=== PATIENT | male | born 1965 | race Caucasian/White ===

== ENCOUNTER 2018-09-09 07:19 | Emergency (ER) | payer OTHER ==
[2018-09-09] MEDS ORDERED: Oxymetazoline 0.05% NASAL SPR* 15 ML BTL BOTH NARES ONE (09:31)
[2018-09-09] MEDS ORDERED: Silver Nitrate/Potassium Nitr* 1 EA STICK TOPICAL ONE (09:54)
[2018-09-09 10:52] VITALS: BP 131/69
--- NOTE | 2018-09-09 11:05 | ED ---
Throat Pain/Nasal Congestion - HPI Summary HPI Summary: Patient is a 52-year-old male who presents emergency department for nosebleed that started around 7 AM. Patient states he wears a CPAP at night and today at work he blew his nose and no started bleeding profusely. Patient states that blood was pouring out of his right nostril and going down his throat. A coworker put a tampon in his nostril which improved bleeding and he presents for evaluation. Patient is not anticoagulated. He otherwise denies chest pain , shortness breath, lightheadedness, dizziness. Patient states he's had occasional bleeds in the past but never to this extent. He notes he does use a humidifier in bedroom at home and applies Vaseline to nose at night. Symptoms are mild in severity. No current modifying factors. - History of Current Complaint Chief Complaint: EDEpistaxis Time Seen by Provider: 09/09/18 08:33 Hx Obtained From: Patient - Allergies/Home Medications Allergies/Adverse Reactions: Allergies Allergy/AdvReac Type Severity Reaction Status Date / Time Pertussis Vaccines Allergy Fever Verified 09/09/18 07:26 tetanus and diphtheria Allergy Fever Verified 09/09/18 07:26 toxoids PMH/Surg Hx/FS Hx/Imm Hx Previously Healthy: Yes Infectious Disease History: No Infectious Disease History: Denies: Traveled Outside the [place] in Last 30 Days - Family History Known Family History: Positive: Non-Contributory - Social History Occupation: Employed Full-time Lives: With Family Alcohol Use: Rare Substance Use Type: Reports: None Smoking Status (MU): Never Smoked Tobacco Review of Systems Positive: Epistaxis Cardiovascular: Negative Respiratory: Negative All Other Systems Reviewed And Are Negative: Yes Physical Exam Triage Information Reviewed: Yes Vital Signs On Initial Exam: Initial Vitals Temp Pulse Resp BP Pulse Ox 97.3 F 88 20 129/88 97 09/09/18 07:22 09/09/18 07:22 09/09/18 07:22 09/09/18 07:22 09/09/18 07:22 Vital Signs Reviewed: Yes Appearance: Positive: Well-Appearing - Pt. sitting up in bed in NAD. Tampon noted anteriorly in right nare that is partially saturated in blood. NO active bleeding. Skin: Positive: Warm, Dry Head/Face: Positive: Normal Head/Face Inspection Eyes: Positive: Normal, EOMI ENT: Positive: Other - Tampon noted anteriorly in right nare that is partially saturated in blood. No bleeding from left. No blood in posterior pharynx. Tampon removed from left nare. No active bleeding. Area noted to the right kiesselbach plexus. Neck: Positive: Supple Neurological: Positive: Normal, CN Intact II-III Psychiatric: Positive: Affect/Mood Appropriate Procedures - Procedure Summary Procedure Summary: Afrin applied to right nare. Silver nitrate stick used to cauterize small area no right kiesselbach region. Pt. tolerated well. No further bleeding. Diagnostics - Vital Signs Vital Signs Temp Pulse Resp BP Pulse Ox 09/09/18 10:51 98.7 F 82 18 131/69 94 09/09/18 07:22 97.3 F 88 20 129/88 97 - Laboratory Lab Statement: Any lab studies that have been ordered have been reviewed, and results considered in the medical decision making process. EENT Course/Dx - Course Course Of Treatment: Pt. presenting for anterior epistaxis. VS stable. He is not anticoagulated. Pt. arrived with nasal packing and bleeding had stopped. I did cauterize area of bleeding with silver nitrate. Advised pt. bleeding may return and he may need nasal packing. Pt. states he already applys vasaline to nostrils with cpap and uses humidifier. Advised to f.u with ent if bleeding recurs. To return to ER if bleeding returns and will not stop after 15 mins .of pressure. Advised to avoid touching or blowing nose. Pt. understands and agrees with plan. - Differential Diagnoses Differential Diagnoses: Epistaxis, Foreign Body, Polyps - Diagnoses Provider Diagnoses: Epistaxis Discharge - Sign-Out/Discharge Documenting (check all that apply): Patient Departure Patient Received Moderate/Deep Sedation with Procedure: No - Discharge Plan Condition: Improved Disposition: HOME Patient Education Materials: Potassium Nitrate/Silver Nitrate (On the skin), Nosebleed (ED) Referrals: Prem Hernandez MD [Medical Doctor] - Noemy Garvey MD [Primary Care Provider] - Additional Instructions: Follow up with ENT if bleeding recurs Do not blow or touch nose If bleeding returns hold pressure and return to ER if bleeding does not stop Return to ER if symptoms change or worsen - Billing Disposition and Condition Condition: IMPROVED Disposition: Home
== END 2018-09-09 10:51 | disposition home or self-care (01) ==
LOC: ED 07:19
DX: R04.0 Epistaxis (principal)
CPT/HCPCS: 30901; 99282; A9270-GY